=== PATIENT | male | born 1970 | race Caucasian/White ===

== ENCOUNTER 2017-10-02 03:13 | Emergency (ER) | payer OTHER ==
[~2017-10-02] VITALS: Ht 162.6 cm; Wt 63.5 kg
[2017-10-02 03:33] LABS: ABSOLUTE NEUTROPHILS 7.3 thou/uL (1.4-8.2); BASOPHILS 0.5 % (0.0-2.0); HEMATOCRIT 43.3 % (42.0-52.0); HEMOGLOBIN 15.6 gm/dL (14.0-18.0); LYMPHOCYTES 25.5 % (24.0-44.0); MCH 30.8 pg (26.0-34.0); MCV 85.6 fL (80.0-100.0); MONOCYTES 5.5 % (1.0-8.0); PLATELET COUNT 213 thou/uL (150-400); POLYS 67.5 % (36.0-66.0); RBC 5.05 mil/uL (4.50-6.00); RDW 13.9 % (10.5-14.5); WBC 10.9 thou/uL (4.0-11.0)
[2017-10-02 03:39] LABS: CALCIUM 8.5 mg/dL (8.5-10.1); CREATININE 0.9 mg/dL (0.7-1.3); POTASSIUM 3.8 mmol/L (3.5-5.1)
[2017-10-02 03:45] LABS: ALBUMIN 3.9 g/dL (3.4-5.0); TOTAL BILIRUBIN 0.3 mg/dL (<0.1-1.0); TOTAL PROTEIN 7.4 g/dL (6.4-8.2)
[2017-10-02 04:55] LABS: URINE BILIRUBIN NEGATIVE (Negative); URINE BLOOD TRACE (Negative); URINE CLARITY CLEAR; URINE COLOR YELLOW; URINE GLUCOSE-RANDOM* TRACE (Negative); URINE KETONES NEGATIVE (Negative); URINE LEUKOCYTES-REFLEX NEGATIVE (Negative); URINE NITRITE-REFLEX NEGATIVE (Negative); URINE PROTEIN (DIPSTICK) NEGATIVE (Negative); URINE SPECIFIC GRAVITY >= 1.030 (1.005-1.035); URINE UROBILINOGEN 0.2 E.U./dl (0.2-1.0)
[2017-10-02] MEDS ORDERED: ANTIVERT25 MG PO (06:11)
[2017-10-02] MEDS ORDERED: ZOFRAN4 MG PO (06:11)
[2017-10-02 07:11] VITALS: BP 121/72
== END 2017-10-02 08:02 | disposition home or self-care (01) ==
LOC: ER 03:13
PROVIDERS: Emergency Medicine
DX: R42 Dizziness and giddiness (principal); R11.2 Nausea with vomiting, unspecified